=== PATIENT | male | born 1995 | race African-American/Black ===

== ENCOUNTER 2021-03-12 08:13 | Emergency (ER) | payer OTHER ==
[~2021-03-12] VITALS: Ht 167.6 cm; Wt 99.8 kg
[2021-03-12] MEDS ORDERED: ONDANSETRON HCL 4 MG ORAL DISINTEGRATING TAB ONE (09:00)
[2021-03-12] MEDS ORDERED: HYDROCODONE/APAP 5MG-325MG TAB PO ONE (09:00)
[2021-03-12] MEDS ORDERED: TYLENOL # 31 EA PO (09:37)
[2021-03-12] MEDS ORDERED: CEPHALEXIN500 MG PO (09:42)
== END 2021-03-12 09:55 | disposition home or self-care (01) ==
LOC: ER 08:25
DX: L02.412 Cutaneous abscess of left axilla (principal); F41.9 Anxiety disorder, unspecified; R51.9 Headache, unspecified; R06.02 Shortness of breath; F17.210 Nicotine dependence, cigarettes, uncomplicated
CPT/HCPCS: 99284; Q0162

== ENCOUNTER 2021-06-15 19:47 | Emergency (ER) | payer OTHER ==
[~2021-06-15] VITALS: Ht 167.6 cm; Wt 90.7 kg
[~2021-06-15 19:47] MED LIST: CEPHALEXIN500 MG PO; TYLENOL # 31 EA PO
[2021-06-15] MEDS ORDERED: HYDROCODONE/APAP 5MG-325MG TAB PO ONE (20:15)
[2021-06-15] MEDS ORDERED: CEFTRIAXONE 1 GM VIAL IM ONE (20:15)
[2021-06-15] MEDS ORDERED: NAPROSYN500 MG PO (20:16)
[2021-06-15] MEDS ORDERED: AUGMENTIN 500-1 EACH PO (20:16)
[2021-06-15] MEDS ORDERED: LIDOCAINE HCL 1% LOCAL INJ 20 ML VIAL ONE (20:23)
[2021-06-15] MEDS ORDERED: HYDROCODONE/APAP 5MG-325MG TAB ONE (20:23)
[2021-06-15] MEDS ORDERED: CEFTRIAXONE 1 GM VIAL ONE (20:23)
[2021-06-15 20:38] VITALS: BP 158/82
== END 2021-06-15 20:38 | disposition home or self-care (01) ==
LOC: FSED 20:09
DX: K04.7 Periapical abscess without sinus (principal); K02.9 Dental caries, unspecified; F41.9 Anxiety disorder, unspecified; F17.210 Nicotine dependence, cigarettes, uncomplicated
CPT/HCPCS: 96372; 99283; J0696; J2001

== ENCOUNTER 2021-07-21 10:06 | Emergency (ER) | payer OTHER ==
[~2021-07-21] VITALS: Ht 167.6 cm; Wt 91.8 kg
[~2021-07-21 10:06] MED LIST changes: +AUGMENTIN 500-1 EACH PO; +NAPROSYN500 MG PO
[2021-07-21] MEDS ORDERED: AMOXICILLIN/CLAVULANATE K 875 MG TAB ONE (10:55)
[2021-07-21] MEDS ORDERED: IBUPROFEN 400 MG TAB ONE (10:55)
[2021-07-21] MEDS ORDERED: AMOXICILLIN/CLAVULANATE K 875 MG TAB PO STA (10:58)
[2021-07-21] MEDS ORDERED: IBUPROFEN 400 MG TAB PO ONE (11:00)
[2021-07-21] MEDS ORDERED: AUGMENTIN 875-1 EACH PO (11:02)
[2021-07-21] MEDS ORDERED: IBUPROFEN600 MG PO (11:03)
== END 2021-07-21 11:20 | disposition home or self-care (01) ==
LOC: FSED 10:36
DX: K04.7 Periapical abscess without sinus (principal); K02.9 Dental caries, unspecified; K08.89 Other specified disorders of teeth and supporting structures; F41.9 Anxiety disorder, unspecified
CPT/HCPCS: 99283

== ENCOUNTER 2021-10-09 06:59 | Emergency (ER) | payer OTHER ==
[~2021-10-09] VITALS: Ht 167.6 cm; Wt 99.8 kg
[~2021-10-09 06:59] MED LIST changes: +AUGMENTIN 875-1 EACH PO; +IBUPROFEN600 MG PO
[2021-10-09] MEDS ORDERED: LIDOCAINE HCL 2% LOCAL 20 ML VIAL ONE (07:37)
[2021-10-09] MEDS ORDERED: IOPAMIDOL 370 MG/ML 200 ML INFUS..BTL INJ ONE (09:10)
[2021-10-09] MEDS ORDERED: SODIUM CHLORIDE 0.9% 50ML 50 ML ONE (09:10)
[2021-10-09] MEDS ORDERED: CEPHALEXIN500 MG PO (09:14)
== END 2021-10-09 09:35 | disposition home or self-care (01) ==
LOC: FSED 07:21
DX: L02.611 Cutaneous abscess of right foot (principal); E11.65 Type 2 diabetes mellitus with hyperglycemia; Z91.14 Patient's other noncompliance with medication regimen; F41.9 Anxiety disorder, unspecified; F17.210 Nicotine dependence, cigarettes, uncomplicated
CPT/HCPCS: 73630; 73701; 99284; J0690; J2001; Q9967

== ENCOUNTER 2022-06-14 04:26 | Emergency (ER) | payer OTHER ==
[~2022-06-14] VITALS: Ht 167.6 cm; Wt 84.8 kg
[2022-06-14] MEDS ORDERED: BROMFED DM COU118 ML PO (05:22)
[2022-06-14] MEDS ORDERED: AZITHROMYCIN250 MG PO (05:22)
[2022-06-14] MEDS ORDERED: MEDROL4 MG PO (05:22)
[2022-06-14] MEDS ORDERED: VENTOLIN HFA18 GM INH (05:22)
[2022-06-14] MEDS ORDERED: IBUPROFEN 400 MG TAB ONE (05:33)
== END 2022-06-14 05:51 | disposition home or self-care (01) ==
LOC: FSED 04:47
DX: R05.9 Cough, unspecified (principal); J06.9 Acute upper respiratory infection, unspecified; E11.9 Type 2 diabetes mellitus without complications; F41.9 Anxiety disorder, unspecified; F17.210 Nicotine dependence, cigarettes, uncomplicated
CPT/HCPCS: 83518; 87400; 99283

== ENCOUNTER 2024-06-02 21:11 | Emergency (ER) | payer MEDICAID, OTHER ==
[~2024-06-02] VITALS: Ht 167.6 cm; Wt 68.0 kg
[~2024-06-02 21:11] MED LIST changes: +AZITHROMYCIN250 MG PO; +BROMFED DM COU118 ML PO; +IBUPROFEN200 MG PO; +MEDROL4 MG PO; +ONDANSETRON ODT4 MG PO; +TYLENOL325 MG PO; +VENTOLIN HFA18 GM INH
[2024-06-02] MEDS ORDERED: AMOXICILLIN500 MG PO (21:31)
[2024-06-02 21:32] VITALS: PULSE 81; RESP 18; TEMP 99.7; O2SAT 98
[2024-06-02] MEDS: IBUPROFEN 600 MG TAB PO STA (21:49)
== END 2024-06-02 21:40 | disposition home or self-care (01) ==
LOC: FSED 21:21
DX: H66.91 Otitis media, unspecified, right ear (principal); K02.9 Dental caries, unspecified
CPT/HCPCS: 99284

== ENCOUNTER 2024-06-19 02:29 | Emergency (ER) | payer MEDICAID ==
[~2024-06-19] VITALS: Ht 167.6 cm; Wt 68.0 kg
[~2024-06-19 02:29] MED LIST changes: +AMOXICILLIN500 MG PO
[2024-06-19] MEDS ORDERED: ONDANSETRON HCL INJ 2MG/ML 2ML 2 MG/ML VIAL ONE (02:51)
[2024-06-19] MEDS ORDERED: ONDANSETRON ODT4 MG PO (03:22)
[2024-06-19] MEDS: LORAZEPAM INJ 2 MG/ML VIAL IM ONE ×2 (03:45→03:46)
[2024-06-19] MEDS: ONDANSETRON HCL INJ 2MG/ML 2ML 2 MG/ML VIAL IM STA (03:46)
[2024-06-19] MEDS: METOCLOPRAMIDE HCL 10 MG/2ML VIAL IM ONE (03:46)
[2024-06-19] MEDS ORDERED: MIDAZOLAM HCL 2 MG/2 ML VIAL ONE (04:12)
[2024-06-19 04:47] LABS: BASOPHILS % 0.2 % (0.0-1.0); EOSINOPHILS # (AUTO) 0.1 (0.0-0.4); HEMATOCRIT 42.2 % (38.2-49.6); HEMOGLOBIN 14.3 g/dL (14.0-18.0); LYMPHOCYTES # (AUTO) 1.3 (1.0-3.2); MEAN CORPUSCULAR HEMOGLOBIN 31.1 pg (28-32); MEAN CORPUSCULAR HGB CONC 33.9 g/dL (31-35); MEAN CORPUSCULAR VOLUME 91.7 fL (81-99); MONOCYTES # (AUTO) 0.6 (0.2-0.8); MONOCYTES % 6.7 % (4.4-11.3); NEUTROPHILS # (AUTO) 6.2 (2.1-6.9); NEUTROPHILS % 75.7 % (38.7-80.0); PLATELET COUNT 212 x10e3/uL (140-360); RED CELL DISTRIBUTION WIDTH 12.1 % (11.7-14.4); WHITE BLOOD COUNT 8.17 x10e3/uL (4.8-10.8)
[2024-06-19] MEDS: KETAMINE HCL INJ 50 MG/ML 10 ML VIAL IM ONE ×2 (04:49→04:50)
[2024-06-19] MEDS: LORAZEPAM INJ 2 MG/ML VIAL IV ONE (04:49)
[2024-06-19] MEDS: MIDAZOLAM HCL 2 MG/2 ML VIAL IM STA (04:50)
[2024-06-19 05:04] LABS: ALBUMIN/GLOBULIN RATIO 1.1 (0.8-2.0); ANION GAP 20.1 mmol/L (8-16); BILIRUBIN,TOTAL 0.5 mg/dL (0.2-1.2); CALCIUM 9.9 mg/dL (8.4-10.2); CREATININE, SERUM 0.86 mg/dL (0.72-1.25); TOTAL PROTEIN 7.7 g/dL (6.5-8.1)
[2024-06-19 05:06] LABS: ACETAMINOPHEN < 3.0 ug/mL (10-30); ETHANOL < 10.0 mg/dL (0.0-10.0); SALICYLATE < 5.0 mg/dL (0-30)
[2024-06-19 05:07] LABS: POTASSIUM 3.1 mmol/L (3.5-5.1)
[2024-06-19 05:20] VITALS: TEMP 98.1
[2024-06-19 06:52] LABS: CLARITY,URINE SL CLOUDY (CLEAR); COLOR,URINE YELLOW (YELLOW); GLUCOSE, URINE NEGATIVE (NEGATIVE); LEUKOCYTE ESTERASE ,URINE NEGATIVE (NEGATIVE); NITRITE,URINE NEGATIVE (NEGATIVE); OPIATES SCREEN,URINE POSITIVE (NEGATIVE); PH,URINE 7.5 (5 - 7); PHENCYCLIDINE SCREEN,URINE NEGATIVE (NEGATIVE); PROTEIN,URINE DIPSTICK TRACE (NEGATIVE)
[2024-06-19 06:53] LABS: AMPHETAMINES SCREEN,URINE NEGATIVE (NEGATIVE); BENZODIAZEPINES SCREEN,URINE POSITIVE (NEGATIVE); BILIRUBIN,URINE NEGATIVE (NEGATIVE); CANNABINOIDS SCREEN,URINE POSITIVE (NEGATIVE); KETONES,URINE TRACE (NEGATIVE); METHADONE SCREEN, URINE NEGATIVE (NEGATIVE); URINE UROBILINOGEN 0.2 mg/dL (0.2 - 1)
[2024-06-19 07:04] LABS: BACTERIA,URINE FEW /HPF; EPITHELIAL CELLS,URINE RARE /LPF; RBC,URINE 0-5 /HPF (0-5); WBC,URINE (MAN) 0-5 /HPF (0-5)
[2024-06-19 07:29] VITALS: PULSE 62; RESP 18; O2SAT 100
== END 2024-06-19 08:20 | disposition home or self-care (01) ==
LOC: FSED 02:42 → ER 08:20
DX: F41.9 Anxiety disorder, unspecified (principal); E11.65 Type 2 diabetes mellitus with hyperglycemia; F20.9 Schizophrenia, unspecified
CPT/HCPCS: 36415; 80053; 80307; 80320; 80329 ×2; 81001; 85025; 99284; J2060; J2250; J2405